=== PATIENT | female | born 1965 | race Caucasian/White ===

== ENCOUNTER 2020-01-27 14:28 | Outpatient (CLI) | payer MEDICARE, SELFPAY ==
[2020-01-27 14:44] LABS: Basophils Absolute Auto 0.06 K/mm3 (0.00-0.10); Basophils Percent Auto 0.6 % (0.0-1.0); Hematocrit 43.6 % (35.0-49.0); Hemoglobin 14.4 g/dL (12.0-15.0); Immature Granulocyte Absolute 0.04 K/mm3 (0.00-0.00); Immature Granulocyte Percent A 0.4 % (0.0-0.0); Lymphocytes Absolute Auto 3.17 K/mm3 (1.10-4.50); Lymphocytes Percent Auto 32.2 % (18.0-42.0); Mean Corpuscular Hemoglobin 28.3 pg (27.0-31.0); Mean Corpuscular Volume 85.7 fL (78.0-102.0); Mean Platelet Volume 9.9 fl (9.2-11.8); Monocytes Absolute Auto 0.75 K/mm3 (0.10-0.90); Monocytes Percent Auto 7.6 % (2.0-11.0); Neutrophils Absolute Auto 5.6 K/mm3 (1.7-7.2); Neutrophils Percent Auto 57.2 % (50.0-70.0); Platelet Count Result 255 K/mm3 (150-420); Red Blood Count 5.09 M/mm3 (4.20-5.40); Red Cell Distribution Width 14.6 % (11.6-14.4); White Blood Count 9.8 K/mm3 (4.8-10.8)
--- NOTE | 2020-01-27 14:55 | ECG_ITS ---
Measurements Intervals [place] Rate: 70 P: 59 UT: 156 QRS: 64 QRSD: 100 T: 36 QT: 413 QTc: 446 Interpretive Statements SINUS RHYTHM POSSIBLE LEFT ATRIAL ENLARGEMENT INCOMPLETE RIGHT BUNDLE BRANCH BLOCK BORDERLINE R WAVE PROGRESSION, ANTERIOR LEADS BORDERLINE ECG Electronically Signed On 01-27-2020 15:16:55 CDT by Sp Burris D.O.
[2020-01-27 15:08] LABS: Alanine Aminotransferase 27 U/L (14-59); Albumin Level 3.6 g/dL (3.4-5.0); Alkaline Phosphatase 112 U/L (46-116); Anion Gap 12.6 mmol/L (7-16); Aspartate Amino Transferase 19 U/L (15-37); Bilirubin,Total 0.2 mg/dL (0.00-1.00); Blood Urea Nitrogen 17 mg/dL (7-18); Calcium 9.1 mg/dL (8.5-10.1); Carbon Dioxide 29 mmol/L (21-32); Chloride 105 mmol/L (98-108); Estimated Glomerular Filt Rate 54; Free T3 2.42 pg/mL (2.18-3.98); Free T4 Free Thyroxine 1.15 ng/dL (0.76-1.46); Glucose 112 mg/dL (70-99); Magnesium 1.9 mg/dL (1.8-2.4); Osmolality Calculated 298 mOsm/kg (285-295); Potassium 3.6 mmol/L (3.5-5.1); Sodium 143 mmol/L (136-145); Thyroid Stimulating Hormone 0.35 uIU/mL (0.36-3.74); Total Protein 7.3 g/dL (6.4-8.2)
--- NOTE | 2020-02-12 09:04 | WPDHOLTEREM ---
Holter/Event Monitor Holter/Event Monitor Date of procedure: 01/27/20 Procedure Type: 30 day event monitor Indications: Palpitations Conclusion: 1. 12 days event monitor between 01/27/20-02/11/20. There are 18 available transmissions for analysis. 2. Underlying rhythm is sinus rhythm. HR range 51-120 bpm; average HR 76 bpm. 3. There are occasional premature supraventricular complexes with total burden <1%. No supraventricular tachycardia. 4. Unable to calcuate PVC's due to excessive artifact, but none were seen in transmissions. 5. No significant pauses greater than 2 seconds. 6. Patient reports 3 symptoms of symptoms other than listed which demonstrate sinus rhythm, HR range 75-92 bpm.
== END 2020-01-27 14:29 | disposition home or self-care (01) ==
PROVIDERS: PCP Internal Medicine; Visit Provider Internal Medicine
DX: R00.2 Palpitations (principal)
CPT/HCPCS: 36415; 80053; 83735; 84439; 84443; 84481; 85025; 93005; 93270

== ENCOUNTER 2020-01-30 11:36 | Outpatient (CLI) | payer MEDICARE, SELFPAY ==
--- NOTE | ~2020-01-30 | US_ITS ---
EXAMINATION: US thyroid DATE: 01/30/2020 13:17 INDICATION: Hypothyroidism. TECHNIQUE: Multiple ultrasound images of the thyroid were obtained. COMPARISON: None. FINDINGS: The right thyroid lobe measures 5.7 x 2.1 x 2.0 cm. The left thyroid lobe measures 4.4 x 1.3 x 1.4 c m. There are multiple nodules in the thyroid measuring less than 5 mm. In the right thyroid lobe, th ere is a 14 mm solid, hypoechoic, nkhdm-selb-dzdk nodule with smooth margin without echogenic foci (T I-RADS TR4). In in the left thyroid lobe, there is a 5 mm mixed cystic and solid, hypoechoic, wider-t montoya-tall nodule with smooth margin without echogenic foci (TR4). IMPRESSION: 1. Thyroid nodules. Thyroid ultrasound is recommended in one year. Reviewed, dictated and finalized at location E.
--- NOTE | 2020-01-30 11:42 | ECHO_ITS ---
Patient Info Name: Sally Ibarra Age: 54 years : 1965 Gender: Female Ht: 62 in Wt: 149 lbs BSA: 1.74 m2 HR: 63 bpm BP: 143 / 83 mmHg Heart Rhythm: Sinus Rhythm Technical Quality: Fair Exam Date: 01/30/2020 12:15 PM Exam Location: [facility] Patient Status: Outpatient Admit Date: 01/30/2020 Staff Ordering Physician: Leelee Ayala MD Mds Manager: Avril Kennedy RDCS Attending Provider: Leelee Ayala MD Referring Physician: Jamie ROY; Exam Type: CA echo doppler color flow Study Info Indications R00.2 - Palpitations R94.31 - Abnormal electrocardiogram ECG EKG Complete two-dimensional, color flow and Doppler transthoracic echocardiogram is performed. Strain analysis performed. History/Risk Factors Hypertension: No Dyslipidemia: No Congenital Heart Disease (CHD): No Peripheral Arterial Disease (PAD): No Myocardial Infarction (PR): No Chronic Lung Disease: No Obesity: No Renal Disease: No Coronary Artery Disease (CAD) No Congestive Heart Failure (CHF): No Cardiomyopathy/LV Systolic Dysfunction: No Diabetes Mellitus: No COPD: No Tobacco Use: Former Cerebrovascular Disease: No Deep Vein Thrombosis (DVT): None Dialysis: None Frailty Scale (CSHA): 1: Very Fit Cardiac Arrest: No Prior Interventions Pacemaker: No PCI: No CABG: No Valve Surgery: No ICD: No PV Intervention: None Heart Transplant: No Summary 1. Left ventricular chamber dimension is normal. 2. Left ventricular systolic function is normal, estimated at 60-65%. 3. The left ventricular diastolic function is normal. 4. E/e' 6 is not elevated. 5. Global longitudinal strain is normal at -18.0%. 6. There is trace tricuspid valve regurgitation. Left Ventricle E/e' 6 is not elevated. Global longitudinal strain is normal at -18.0%. Left ventricular chamber dimension is normal. Left ventricular systolic function is normal, estimated at 60-65%. The left ventricular diastolic function is normal. Right Ventricle Right ventricular chamber dimension is normal. Right ventricular systolic function is normal. Left Atria Left atrial chamber dimension is normal. Right Atria Right atrial chamber dimension is normal. Aortic Valve The aortic valve is trileaflet. There is no aortic valve stenosis. There is no aortic valve regurgitation. Pulmonic Valve There is no pulmonic regurgitation. Mitral Valve There is no mitral valve stenosis. There is no mitral valve regurgitation. Tricuspid Valve RVSP is not calculated due to an inadequate TR jet. There is trace tricuspid valve regurgitation. Pericardium/Pleural There is no pericardial effusion. Inferior Vena Cava Normal inferior vena cava with >50% collapse upon inspiration consistent with normal right atrial pressure, 5 mmHg. Aorta The aortic root size at the sinus of Valsalva is normal. Left Ventricular Outflow Tract Name Value Normal LVOT 2D LVOT Diameter 2.3 cm LVOT Doppler LVOT Peak Velocity
== END 2020-01-30 11:37 | disposition home or self-care (01) ==
LOC: CHSIMG 11:37
PROVIDERS: PCP Internal Medicine; Visit Provider Internal Medicine
DX: E05.90 Thyrotoxicosis, unspecified without thyrotoxic crisis or storm (principal); R00.2 Palpitations; R94.31 Abnormal electrocardiogram [ECG] [EKG]
CPT/HCPCS: 76536; 93306

== ENCOUNTER 2021-10-26 10:46 | Outpatient (CLI) | payer MEDICARE, SELFPAY ==
--- NOTE | ~2021-10-26 | MM_ITS ---
EXAMINATION: MM screening [facility] BI w nancy HISTORY: Screening TECHNIQUE: Craniocaudal and mediolateral oblique 3-D tomosynthesis images were obtained and synthetic 2-D images were generated. CAD analysis was submitted and interpreted. COMPARISON: Comparison to multiple prior studies sequentially, with oldest reviewed study dated 09/24. BREAST PARENCHYMAL COMPOSITION: There are scattered areas of fibroglandular density. FINDINGS: There is no evidence of suspicious mass, calcification, or architectural distortion to sugg est malignancy in either breast. There has been no suspicious interval change. IMPRESSION: 1. No mammographic evidence of malignancy. 2. Recommend routine screening mammography in one year. BI-RADS Category 1: Negative Reviewed, dictated and finalized at location A. 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
== END 2021-10-26 10:47 | disposition home or self-care (01) ==
PROVIDERS: PCP Internal Medicine; Visit Provider Obstetrics & Gynecology
DX: Z12.31 Encounter for screening mammogram for malignant neoplasm of breast (principal)
CPT/HCPCS: 77063; 77067

== ENCOUNTER 2022-12-21 11:50 | Outpatient (CLI) | payer MEDICARE, SELFPAY ==
--- NOTE | ~2022-12-21 | XR_ITS ---
EXAMINATION: XR chest 2V 12/21/2022 12:07 INDICATION: Covid infection. PROCEDURE: 2 view chest COMPARISON: Comparison to multiple prior studies sequentially, with oldest reviewed study dated 11/28. FINDINGS: The lungs are clear. The cardiomediastinal silhouette is within normal limits. There are no pleural effusions. There is no pneumothorax suspected. There are Kruger rods at the thoracol umbar junction. The lungs are hyperinflated which is consistent with, but not diagnostic of chronic o bstructive pulmonary disease. IMPRESSION: 1: NO ACUTE CARDIOPULMONARY DISEASE. Reviewed, dictated and finalized at location B.
== END 2022-12-21 11:51 | disposition home or self-care (01) ==
LOC: CHSIMG 11:52
PROVIDERS: PCP Internal Medicine; Visit Provider Internal Medicine
DX: R05.9 Cough, unspecified (principal); R06.2 Wheezing
CPT/HCPCS: 71046

== ENCOUNTER 2023-03-24 12:04 | Outpatient (CLI) | payer MEDICARE, SELFPAY ==
--- NOTE | ~2023-03-24 | XR_ITS ---
AP and lateral views of the left hip Clinical history: Pain Findings: No acute fracture or dislocation is seen. Osseous alignment is anatomic. Left hip joint is unremarkable. Lumbosacral spinal fixation hardware is partially imaged. Soft tissues are unremarkable . Impression: No acute fracture or dislocation. Lumbosacral spinal fixation hardware, partially imaged. Reviewed, dictated and finalized at location . Impression: No acute fracture or dislocation. Lumbosacral spinal fixation hardware, partially imaged.
--- NOTE | ~2023-03-24 | XR_ITS ---
Left wrist Technique: PA, oblique, lateral, and ulnar deviation views were obtained. Clinical History: Swelling Findings: No acute fracture or dislocation is seen. Osseous alignment is anatomic. Joint spaces are p reserved. Soft tissues are unremarkable. Impression: Unremarkable left wrist radiographs. Reviewed, dictated and finalized at location . Impression: Unremarkable left wrist radiographs.
--- NOTE | ~2023-03-24 | XR_ITS ---
Left elbow Technique: AP, oblique, and lateral views were obtained. Clinical History: Pain Findings: No acute fracture or dislocation is seen. There is probable persistent secondary ossificati on center at the medial epicondyle humerus. Osseous alignment is anatomic. Joint spaces are preserved . There is elevation of the anterior fat pad, suggestive of small joint effusion. Impression: Probable small joint effusion. This raises the possibility of occult radial head fracture. Probable persistent secondary ossification center at the medial epicondyle of the humerus. Reviewed, dictated and finalized at [facility]. Impression: Probable small joint effusion. This raises the possibility of occult radial hea d fracture. Probable persistent secondary ossification center at the medial epicondyle of t he humerus.
--- NOTE | ~2023-03-24 | CT_ITS ---
EXAMINATION: CT elbow LT wo con DATE: 03/24/2023 14:15 INDICATION: Left elbow fracture. TECHNIQUE: Computed tomography (CT) of the left elbow was performed without intravenous contrast. Aut omated exposure control and iterative reconstruction technique were employed. The dose-length product was 456.05 mGy-cm. COMPARISON: Left elbow radiographs 03/24/2023 FINDINGS: Bone alignment is normal. No fracture. There is heterotopic ossification distal to medial h umeral epicondyle. There is mild elbow joint osteoarthritis. There is a small elbow joint effusion wi th 2 mm loose body. IMPRESSION: 1. No fracture. 2. Small elbow joint effusion with small loose body. 3. Mild elbow joint osteoarthritis. Reviewed, dictated and finalized at location E.
== END 2023-03-24 12:05 | disposition home or self-care (01) ==
PROVIDERS: PCP Internal Medicine; Visit Provider Internal Medicine
DX: S59.902A Unspecified injury of left elbow, initial encounter (principal); S79.912A Unspecified injury of left hip, initial encounter; M25.422 Effusion, left elbow; M24.022 Loose body in left elbow; M19.022 Primary osteoarthritis, left elbow; Z98.1 Arthrodesis status
CPT/HCPCS: 73080; 73110; 73200; 73502

== ENCOUNTER 2023-04-04 09:19 | Outpatient (CLI) | payer MEDICARE, SELFPAY ==
--- NOTE | ~2023-04-04 | XR_ITS ---
Left elbow Technique: AP, oblique, and lateral views were obtained. Clinical History: Injury COMPARISON: 03/24/2023 Findings: Stable elevation of the anterior fat pad which suggests small joint effusion. No acute frac ture or dislocation seen. Osseous alignment is unchanged. Stable heterotopic ossification at the medi al epicondyle region of the humerus. Impression: No change from prior exam. No acute fracture evident. Stable heterotopic ossification at the medial epicondyle. Small joint effusion probably present. Reviewed, dictated and finalized at location . Impression: No change from prior exam. No acute fracture evident. Stable heterotopic ossification at the medial epicondyle. Small joint effusion probably present.
== END 2023-04-04 09:20 | disposition home or self-care (01) ==
LOC: CHSIMG 09:21
PROVIDERS: PCP Internal Medicine; Visit Provider Internal Medicine
DX: S59.902A Unspecified injury of left elbow, initial encounter (principal); M89.9 Disorder of bone, unspecified; M25.422 Effusion, left elbow
CPT/HCPCS: 73080

== ENCOUNTER 2023-04-05 10:19 | Outpatient (CLI) | payer MEDICARE, SELFPAY ==
--- NOTE | ~2023-04-05 | MM_ITS ---
EXAMINATION: MM screening [facility] BI w nancy HISTORY: Screening mammogram TECHNIQUE: Craniocaudal and mediolateral oblique 3-D tomosynthesis images were obtained and synthetic 2-D images were generated. CAD analysis was submitted and interpreted. COMPARISON: 10/26/2021, 07/20/2017 BREAST PARENCHYMAL COMPOSITION: There are scattered areas of fibroglandular density. FINDINGS: No suspicious mass, calcification, or architectural distortion are identified in either lisbeth ast to suggest malignancy. There has been no suspicious interval change. IMPRESSION: 1. No mammographic evidence of malignancy. 2. Recommend routine screening mammography in one year. BI-RADS Category 1: Negative Reviewed, dictated and finalized at location A.
== END 2023-04-05 10:20 | disposition home or self-care (01) ==
LOC: CHSIMG 10:19
PROVIDERS: PCP Internal Medicine; Visit Provider Internal Medicine
DX: Z12.31 Encounter for screening mammogram for malignant neoplasm of breast (principal)
CPT/HCPCS: 77063; 77067

== ENCOUNTER 2024-01-01 11:21 | Outpatient (CLI) | payer MEDICARE, SELFPAY ==
--- NOTE | ~2024-01-01 | XR_ITS ---
EXAMINATION: XR lumbar spine 2-3V DATE: 01/01/2024 11:53 INDICATION: Right-sided low back swelling. Fall. TECHNIQUE: 3 views of lumbar spine were obtained. COMPARISON: None. FINDINGS: There are changes of posterior fusion procedure from T11 to S1 and the bilateral iliac bone s with screws and rods. There are changes of anterior fusion procedure at L4-L5 and L5-S1 with interb braydon devices. The vertical rods are discontinuous at L3-L4, but there is bridging posterolateral bone graft at this level. There is 3 mm retrolisthesis of T12 on L1, L1 on L2, and L2 on L3. Vertebral bod y heights are normal. There is mildly decreased disc height at T12-L1 and moderately decreased disc h eight at L2-L3 and L3-L4. IMPRESSION: 1. Moderate lumbar spondylosis. 2. Posterior fusion procedure from T11 to S1 and the bilateral iliac bones. 3. Anterior fusion procedures at L4-L5 and L5-S1. Reviewed, dictated and finalized at location E.
[2024-01-01 11:44] LABS: Basophils Absolute Auto 0.07 K/mm3 (0.00-0.10); Basophils Percent Auto 0.7 % (0.0-1.0); Eosinophils Absolute Auto 0.14 K/mm3 (0.02-0.50); Eosinophils Percent Auto 1.3 % (1.0-6.0); Hematocrit 49.7 % (35.0-49.0); Hemoglobin 16.5 g/dL (12.0-15.0); Immature Granulocyte Absolute 0.07 K/mm3 (0.00-0.00); Immature Granulocyte Percent A 0.7 % (0.0-0.0); Lymphocytes Absolute Auto 3.19 K/mm3 (1.10-4.50); Lymphocytes Percent Auto 29.9 % (18.0-42.0); Mean Corpuscular HGB Conc 33.2 g/dL (32-36); Mean Corpuscular Hemoglobin 30.1 pg (27.0-31.0); Mean Corpuscular Volume 90.5 fL (78.0-102.0); Mean Platelet Volume 9.6 fl (9.2-11.8); Monocytes Percent Auto 7.5 % (2.0-11.0); Neutrophils Percent Auto 59.9 % (50.0-70.0); Platelet Count Result 241 K/mm3 (150-420); Red Blood Count 5.49 M/mm3 (4.20-5.40); Red Cell Distribution Width 14.5 % (11.6-14.4); White Blood Count 10.7 K/mm3 (4.8-10.8)
[2024-01-01 11:53] LABS: Appearance Urine Clear (Clear); Bilirubin Urine Negative (Negative); Blood Urine Negative (Negative); Color Urine Light Yellow (Yellow); Glucose Urine UA Negative (Negative); Ketones Urine Negative (Negative); Leukocyte Esterase Ur Negative LEU/UL (Negative); Nitrate Urine Negative (Negative); Protein Urine Negative (Negative); Specific Grav Ur <= 1.005 (1.010-1.020); Urobilinogen Urine 0.2 mg/dL (0.2-1.0)
[2024-01-01 12:00] LABS: Anion Gap 11 mmol/L (4-12); Blood Urea Nitrogen 12 mg/dL (7-18); Calcium 9.4 mg/dL (8.5-10.1); Carbon Dioxide 28 mmol/L (21-32); Chloride 102 mmol/L (98-108); Estimated Glomerular Filt Rate > 60; Glucose 99 mg/dL (70-99); Osmolality Calculated 291 mOsm/kg (285-295); Potassium 4.5 mmol/L (3.5-5.1); Sodium 141 mmol/L (136-145)
[2024-01-01 12:06] LABS: Add Urine Microscopic? NO
[2024-01-01 15:24] LABS: CRP < 0.5 mg/dL (0.0-0.9)
[2024-01-01 16:13] LABS: Erythrocyte Sedimentation Rate 3 mm/hr (0-20)
== END 2024-01-01 11:22 | disposition home or self-care (01) ==
LOC: CHSLAB 11:23
PROVIDERS: PCP Internal Medicine; Visit Provider Internal Medicine
DX: M54.50 Low back pain, unspecified (principal); R50.9 Fever, unspecified; R30.0 Dysuria
CPT/HCPCS: 36415; 72100; 80048; 81003; 85025; 85652; 86140

== ENCOUNTER 2024-01-03 12:48 | Outpatient (CLI) | payer MEDICARE, SELFPAY ==
--- NOTE | ~2024-01-03 | CT_ITS ---
EXAMINATION: CT lumbar spine wo con DATE: 01/03/2024 13:20 INDICATION: Chronic low back pain. TECHNIQUE: Computed tomography (CT) of the lumbar spine was performed without intravenous contrast. A utomated exposure control and iterative reconstruction technique were employed. The dose-length produ ct was 792.65 mGy-cm. COMPARISON: CT lumbar spine 01/07/2013 FINDINGS: There is 5 degrees levocurvature of lumbar spine. There is 3 mm retrolisthesis of L1 on L2, L2 on L3, and L3 on L4. There are changes of anterior fusion procedures at L4-L5 and L5-S1 with inte rbody devices. Osteopenia is noted. There are changes of posterior fusion procedure from T11 to S1 an d the bilateral iliac bones with screws. The left L3 screws broken. The vertical rods are broken at L 3-L4. There is mildly decreased disc height at T10-T11 and T11-T12, moderately decreased disc height at L1-L2, and severely decreased disc height at L2-L3 and L3-L4. The following disc levels are specif ically discussed: L1-L2: The disc is bulging. There is mild bilateral facet joint hypertrophy. There is moderate bilate ral neural foraminal stenosis. There is mild central canal stenosis. L2-L3: The disc is bulging. There is mild bilateral facet joint hypertrophy. There is moderate bilate ral neural foraminal stenosis. There is mild central canal stenosis. L3-L4: The disc is bulging. There is ankylosis of the facet joints with moderate bilateral hypertroph y. There is moderate bilateral neural foraminal stenosis. There is mild central canal stenosis. L4-L5: There is moderate bilateral facet joint hypertrophy. There is mild bilateral neural foraminal stenosis. There is no central canal stenosis. L5-S1: There is moderate bilateral facet joint hypertrophy. There is mild bilateral neural foraminal stenosis. There is no central canal stenosis. IMPRESSION: 1. Anterior fusion procedures at L3-L4 and L4-L5. 2. Posterior fusion procedure from T11 to S1 and the bilateral iliac bones with fracture of the left L3 screw and fracture of the vertical rods at L3-L4. 3. Moderate lumbar spondylosis. Reviewed, dictated and finalized at location E.
== END 2024-01-03 12:49 | disposition home or self-care (01) ==
LOC: CHSIMG 12:50
PROVIDERS: PCP Internal Medicine; Visit Provider Internal Medicine
DX: M54.50 Low back pain, unspecified (principal); Z98.1 Arthrodesis status; M43.06 Spondylolysis, lumbar region
CPT/HCPCS: 72131

== ENCOUNTER 2024-04-16 10:00 | Outpatient (RCR) | payer MEDICARE, SELFPAY ==
--- NOTE | 2024-04-16 11:51 | OPREHPOC ---
Outpatient Therapy Plan of Care This is a Multidisciplinary Plan of Care that may contain components documented by all disciplines (PT, OT, and ST.) PT Problem 1 PT Problem #1 Knowledge Deficit PT Goal 1 Goal The patient will be independent in a home exercise program. Target Visit 4 PT Problem 2 PT Problem #2 Pain PT Goal 1 Goal The patient will report no greater than 3/10 low back pain with house chores and walking for exercise. Target Visit 12 PT Problem 3 PT Problem #3 Impaired Functional Mobil PT Goal 1 Goal 1. The patient will demonstrate 30% or less self perceived disability per the Back Index. 2. The patient will ambulate 1,200 feet during the 6 minute walk test to improve community ambulation. Target Visit 12 PT Problem 4 PT Problem #4 Impaired Strength PT Goal 1 Goal The patient will demonstrate at least 4-/5 upper and lower abdominal and lumbar extension strength to support the spine for daily activities and walking for exercise. Target Visit 12
--- NOTE | 2024-04-16 11:51 | PTOPEVAL1 ---
Assessment and note entered by Aura Toney, PT Evaluation Information Assessment Status Evaluation ICD-10 Condition Codes (PT) M54.16 Onset 04/11/24 Subjective Information Montse Ibarra reports she has a history of 3 back surgeries with the last one being a fusion from T11-S1. She broke the rods after her last surgery shortly after surgery in 2019. She was able to rehabilitate and returned to walking for exercise. She had a fall in November 2023 and since then she has been having constant lower back pain and is unable to walk for exercise. She has had to start taking pain medication regularly again due to constant pain. She notes increased pain when she vacuums, mops, sweeps, or works in her flower beds. She notes increased pain riding in her 's truck as well. She is using heat and laying down to help for pain. She had a follow up with her surgeon and was recommended to have surgery to fix the rods and screws that broke loose. She did not want to have surgery and was referred to PT. Reported Pain Level Pain Score 5: Self Report Assessment PT Clinical Summary Sally Ibarra presents with low back pain. She has a history of 3 different lumbar fusion surgeries with the most recent one being completed in 2019 for a T11-S1 fusion. She had a fall in November 2023 and since then she has been having constant low back pain and is unable to walk for exercise due to the pain. She also has difficulty riding in her 's truck, performing yard work, and performing house chores. She objectively demonstrates decreased and painful lumbar AROM, decreased core strength, decreased bilateral quadriceps flexibility, tenderness in the lower lumbar spine, and decreased functional abilities. She will benefit from skilled PT to address these limitations and improve functional ability. Plan of Care Interventions Electrical Stimulation,Hot Pack/Cold Pack,Manual Therapy,Neuro Re-education,Patient/Caregiver Educati,Therapeutic Activities,Therapeutic Exercise PT Services Indicated Yes Treatment Frequency and 2 times a week for 12 visits Duration These treatments will address the objective and functional deficits as defined above. The patient will be advanced safely and appropriately in order for the patient to progress towards his/her prior level of function. Additional exercises will
--- NOTE | 2024-05-08 10:19 | PTOPDC ---
Assessment and note entered by Aura Toney, PT Evaluation Information Assessment Status Discharge - Pt Not Presen ICD-10 Condition Codes (PT) M54.16 Onset 04/11/24 Subjective Information Pt called on 05/07/24 and cancelled remaining appointments due to PT making her pain worse. Assessment PT Clinical Summary Montse Ibarra completed 6 skilled PT visits for lumbar radiculopathy. She called on 05/07/24 and asked to be discharged due to pain worsening. Pt will be discharged. Plan of Care PT Services Indicated No
== END 2024-05-03 11:15 | disposition home or self-care (01) ==
LOC: CHSPT 10:00
DX: M54.16 Radiculopathy, lumbar region (principal)
CPT/HCPCS: 97014; 97110; 97161; G0283

== ENCOUNTER 2025-02-21 12:20 | Outpatient (CLI) | payer MEDICARE, SELFPAY ==
--- NOTE | ~2025-02-21 | MM_ITS ---
EXAMINATION: MM screening donna BI w nancy HISTORY: Screening TECHNIQUE: Craniocaudal and mediolateral oblique 3-D tomosynthesis images were obtained and synthetic 2-D images were generated. CAD analysis was submitted and interpreted. COMPARISON: Comparison to multiple prior studies sequentially, with oldest reviewed study dated 05/2017. BREAST PARENCHYMAL COMPOSITION: Dense: The breasts are heterogeneously dense, which may obscure small masses FINDINGS: There is no evidence of suspicious mass, calcification, or architectural distortion to sugg est malignancy in either breast. There has been no suspicious interval change. IMPRESSION: 1. No mammographic evidence of malignancy. 2. Recommend routine screening mammography in one year. BI-RADS Category 1: Negative Reviewed, dictated and finalized at location B.
--- NOTE | ~2025-02-21 | DEXA_ITS ---
Bone Density Report Name: HARVINDER SANDOVAL Age: 59 Sex: Female Ethnicity: White Date of : 1965 Indication: postmenopausal; screening for osteoporosis; prior fracture; hysterectomy; Referring Provider: Leelee Ayala Study: Bone densitometry was performed. Exam Date: February 21, 2025 Accession number: [id number] Bone Density: Region BMD T-score Z-score Classification Femoral Neck (Left) 0.626 -2.0 -0.7 Osteopenia Total Hip (Left) 0.784 -1.3 -0.3 Osteopenia Femoral Neck (Right) 0.562 -2.6 -1.3 Osteoporosis Total Hip (Right) 0.736 -1.7 -0.7 Osteopenia Femoral Neck Mean 0.594 -2.3 -1.0 Osteopenia Total Hip Mean 0.760 -1.5 -0.5 Osteopenia World Health Organization criteria for BMD impression classify patients as: Normal (T-score at or above -1.0), Osteopenia (T-score between -1.0 and -2.5), or Osteoporosis (T-score at or below -2.5). 10-year Fracture Risk: FRAX not reported because: Some T-score for Spine Total or Hip Total or Femoral Neck at or below -2.5 Prior hip or vertebral fracture Clinical Information Provided by Patient: Have had a previous hip or vertebral fracture Has had a low trauma fracture Has used the following medications: Vitamin D Has the following medical conditions: Hysterectomy Patient maximum height was 62 Menopause Age: 39 No regular weight bearing exercise Drinks caffeinated beverages Onset of menses at age 11 Number of children 1 Impression: The patient has established osteoporosis, based on the Right Femoral Neck T-score and the existence of a prior fracture. The patient has risk factors, including: previous fracture. Discussion: HIGH RISK OF FRACTURE. BONE DENSITY IS UNDESIRABLY LOW AT ONE OR MORE SKELETAL SITES, CONSISTENT WITH POSTMENOPAUSAL OSTEOPOROSIS. This patient's lowest T-score, in a patient who has previously fractured, meets the World Health Organization's (WHO) criteria for severe osteoporosis. In untreated patients, the risk of osteoporotic fracture increases approximately two-fold for each 1.0 SD decrease in T-score. Low bone density is not the only risk factor for fracture; also consider factors such as patient's age, frailty or poor health, risk of falling, risk of injury, previous osteoporotic fracture, family history of osteoporosis, cigarette smoking, low body weight, etc. Not everyone with low bone mineral density has osteoporosis; osteomalacia and other metabolic bone disorders should also be considered. Patients who have osteoporosis should be evaluated for specific diseases and conditions (secondary causes) that may cause or contribute to bone loss. The [place] Association of Clinical Endocrinologists (AACE) and National Osteoporosis Foundation (NOF) recommend pharmacologic intervention for all postmenopausal women with a previous hip or vertebral fracture and a T-score in this range. The patient should follow a healthful lifestyle (good nutrition with adequate calcium and vitamin D, and appropriate weight-bearing exercise). Follow-Up: Consider a repeat BMD and Vertebral Fracture Assessment (VFA) exam in 2 years or sooner if medically necessary, to reassess this patient's status. Reported by: MÓNICA on 02/21/2025 2:46:00 PM. Reviewed, dictated and finalized at location A.
--- OUTSIDE RECORDS SUMMARY | 2025-02-21 12:22 | XMS_ITS | Continuity of Care Document ---
Author Organization Merged with [facility] Address [address] [place] [address] Phone Care Team Providers Care Administrator Of Home Health Name Role Phone Mason Espinosa MD Unavailable Unavailable Procedures Procedure Date Office/outpatient Visit, Est Office/outpatient Visit, [facility] Advance Directives Directive Yes / No Effective Date File Name No Information Encounters Encounter Description Practice Location Reason(s) For Visit Diagnoses Date Provider Providers Copied on Encounter Office/outpat ient Visit, [facility], [address] [place] [address] [address], [place], [place], [id number], tel:[phone] [facility] No Information 0 Francisca Cuevas. [address] [facility] [place], [id number], [place]. tel:[phone] Referring Provider: Zeny Helton [facility] [address] [place], [address]. tel:[phone] Office/outpat ient Visit, [facility], [address], [place], [place], [id number], tel:[phone] [facility] No Information 7 0 Francisca Cuevas. [address] [facility], [facility], [place], [place], [id number], [place]. tel:[phone] Referring Provider: Nemesio Orellana OD, [facility] [address] [place], [address]. tel:[phone] Family History Family Member Type Diagnosis Age At Onset No Information Payers Payer name Insurance type Covered democrat ID Authoriza tion(s) [place] [id number] Social History Type Description Quantity Date Captured Comments Sex Female Smoking Status No Information Chief Complaint And Reason For Visit No Information Reason For Referral Reason For Referral No Information History Of Present Illness Encounter Date Complaint History Of Prese nt Illness No Information Functional Status Date Functional Assessmen t No Information Instructions Date Instruction Additional Infor mation No Information Assessments Type Assessment Date No Information Patient Care Teams Name Effective Dates (start - stop) Status Members No Information
--- OUTSIDE RECORDS SUMMARY | 2025-02-21 12:22 | XMS_ITS | Continuity of Care Document ---
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 Role Phone Unavailable Unavailable Unavailable Advance Directives Directive Yes / No Effective Date File Name No Information Encounters Encounter Description Practice Location Reason(s) For Visit Diagnoses Date Provider Providers Copied on Encounter [facility], [address], [place], [place], [id number], tel:[phone] [facility] LUMBAR DISC DISPLACEMENT 8 No Information [facility], [address], [place], [place], [address], tel:[phone] [facility] OTH ADV EFF MED/BIO SUB 4 No Information Family History Family Member Type Diagnosis Age At Onset No Information Payers Payer name Insurance type Covered republican ID Authoriza tion(s) No Information Social History Type Description Quantity Date Captured [...]
--- OUTSIDE RECORDS SUMMARY | 2025-02-21 12:22 | XMS_ITS | Clinical Summary ---
Author Organization [facility] Address [address] [place] [address] Care Team Providers Care Solar System Designer Name Role Phone Leelee Ayala MD Primary Care Provider [phone] Allergies Active Allergy Reactions Criticality Noted Date Comments Apple Anaphylaxis,Swelling High 02/28/2019 Banana Anaphylaxis,Swelling High Lei Anaphylaxis,Swelling High 02/28/2019 Morphine Nausea & Vomiting Low 06/26/2019 Medications acetaminophen 500 mg capsuleIndicati ons:Pain Take 2 capsules (1,000 mg total) by mouth every 6 (six) hours Wean down. 60 tablet 07/05/2019 Active HYDROcodone-payton taminophen (NORCO) 10-325 mg per tablet 0 08/12/2020 Activ e meloxicam (MOBIC) 15 mg tablet 06/29/2021 Active Active Problems Problem Noted Date Diagnosed Date Other secondary scoliosis, lumbar region 019 Spinal stenosis, lumbar na on, with neurogenic claudication 04/18/2019 Lumbago 12/16/2015 Mass of breast 10/09/2012 Arthralgia of shoulder 06/14/2012 Resolved Problems Problem Noted Date Diagnosed Date Resolved Date Osteoporosis 02/20/2019 03/15/2019 Encounters Date Type Department Care Team Description 02/19/2025 Telephone [facility] Scheduling [address] [place] [address] Avril Rg from Last 3 Months Immunizations Immunization Administration Dates Next Due Influenza, Quadrivalent, Spl it, Preservative Free, Intramuscular 07/02/2019 Surgical History Surgery Date Site/Laterality Comments SPINAL FUSION fusion at L5-S1 in 2003 and subsequently at L4-L5 in 2008 HERNIA REPAIR COLONOSCOPY SECTION ULNAR NERVE TRANSPOSITION Left SALPINGOOPHORECTOMY HYSTERECTOMY 09/11/2001 - 09/10/2002 with removal of tubes and remaining ovary Medical History Medical History Date Comments Osteoarthritis Scoliosis Hypertension Osteopenia 03/12/2019 Family History Medical History Relation Name Comments Hypertension Father Stroke Father Relation Name Status Comments Father Social History Tobacco Use Types Packs/Day Years Used Date Smoking Tobacco: Former Cigarettes 1 30 1 8 2017 Smokeless Tobacco: Never Alcohol Use Standard Drinks/Week Comments Yes 0 (1 standard drink = 0.6 oz pur e alcohol) social one every 2 weeks Comments No Sex and Gender Information Value Date Recorded Sex Assigned at Not on file Legal Sex Female 12:01 PM JAILER Gender Identity Female 07/07/2021 9:17 AM CDT Sexual Orientation Straight 07/07/2021 9: 17 AM CDT Occupation Industry Job Start Date Job End Date disabled Not on file Not on file Not on file Obstetrics History Last Filed Vital Signs Vital Sign Reading Time Taken Comments Blood Pressure 101/50 07/05/2019 11:42 AM CDT Pulse 80 07/05/2019 11:42 AM CDT Temperature 37 C (98.6 F) 07/05/2019 11:42 AM CDT Respiratory Rate 18 07/05/2019 11:42 AM CDT Oxygen Saturation 97% 07/05/2019 11:42 AM CDT Inhaled Oxygen Concentration - - Weight 61.7 kg (136 lb) 01/10/2024 8:33 AM CDT Height 157.5 cm (5' 2) 01/10/2024 8:33 AM CDT Body Mass Index 24.87 01/10/2024 8:33 AM CDT Plan of Treatment Health Maintenance Due Date Last Done Comments Colon Cancer Screening-Colonoscopy 1964 Depression Screening 1964 Hepatitis C Screening 1964 DTaP/Tdap/Td Vaccine (1 - Tdap) 1975 Hepatitis B Screening 1982 Regular Well Visit/Exam 18-64 1982 Lung Cancer Screening 2014 Zoster Vaccine (1 of 2) 2014 Breast Cancer Screening-Mammogram 01/21/2017 01/22/2016, 10/12/2012 Influenza Vaccine (Season Ended) 2025 06/05/2020, 07/02/2019, 06/22/2018, Additional history exists Pneumococcal vaccine <65 Aged Out 06/15/2015 No longer eligible based on patient's age to complete this topic Medical Devices Implanted Type Area History Professor Device Identifier Shelf Expiration Date Model / Serial / Lot L4-5 Fusion- 4 Implanted:2003 (Quantity not on file) Lumbar-Sa cral Spine [employer] [id number] - [id number] - [id number] Implanted:Qty: 1 on 07/01/2019 by Danish Hammonds MD at [facility] N/A: Spine Lumbar [employer] Inc 06/03/2024 [id number] / [id number] / Medtronic Sofamor Danek [id number] Cd Horizon 5.5mm 500mm Line Straight Gumaro Spinal Titanium - [id number] Implanted:Qty: 1 on 07/01/2019 by Danish Hammonds MD at [facility] N/A: Spine Lumbar Medtronic Inc 07/01/2019 [id number] / / Medtronic Sofamor Danek [id number] Solera Cd Horizon 6.5mm 45mm Multiaxial Spine Screw Bone Cocr - [id number] Implanted:Qty: 12 on 07/01/2019 by Danish Hammonds MD at [facility] N/A: Spine Lumbar Medtronic Inc 07/01/2019 [id number] / / Medtronic Sofamor Danek [id number] Solera Cd Horizon 6.5mm 50mm Multiaxial Spine Screw Bone Cocr - [id number] Implanted:Qty: 4 on 07/01/2019 by Danish Hammonds MD at [facility] N/A: Spine Lumbar Medtronic Inc 07/01/2019 [id number] / / Medtronic Inc [id number] 8.5mm 90mm Multiaxial Cannulated Thoracolumbar Screw Bone - [id number] Implanted:Qty: 1 on 07/01/2019 by Danish Hammonds MD at [facility] N/A: Spine Lumbar Medtronic Inc 07/01/2019 [id number] / / Medtronic Sofamor Danek [id number] Cd Horizon Break Off Spinal Screw Set Titanium Nonsterile 5.5 Mm - [id number] Implanted:Qty: 18 on 07/01/2019 by Danish Hammonds MD at [facility] N/A: Spine Lumbar Medtronic Inc 07/01/2019 [id number] / / Medtronic Inc [id number] 8.5mm 80mm Multiaxial Cannulated Thoracolumbar Screw Bone - [id number] Implanted:Qty: 1 on 07/01/2019 by Danish Hammonds MD at [facility] N/A: Spine Lumbar Medtronic Inc 07/01/2019 [id number] / / Medtronic Sofamor Danek [id number] Infuse 18mm 26mm Absorbable Sponge Sterile Water Syringe Needle - [id number] Implanted:Qty: 1 on 07/01/2019 by Danish Hammonds MD at [facility] N/A: Spine Lumbar Medtronic Inc 2020 [id number] / / [id number] Medtronic Sofamor Danek [id number] Infuse 18mm 26mm Absorbable Sponge Sterile Water Syringe Needle - [id number] Implanted:Qty: 1 on 07/01/2019 by Danish Hammonds MD at [facility] N/A: Spine Lumbar Medtronic Inc 04/10/2020 [id number] / / [id number] Medtronic Sofamor Danek [id number] Mastergraft Block Void Filler Substitute 20ml Bone Graft Matrix - [id number] Implanted:Qty: 1 on 07/01/2019 by Danish Hammonds MD at [facility] N/A: Spine Lumbar Medtronic Inc 10/11/2020 [id number] / / [id number] Procedures Procedure Name Priority Date/Time Associated Diagnosis Comments SCREENING MAMMOGRAM W RUIZ Routine 01/22/2016 8:50 AM CDT from Last 3 Months or Most Recently Relevant to Health Maintenance Results * Screening Mammogram W Ruiz (01/22/2016 8:50 AM CDT) Anatomical Region Laterality Modality Breast N/A Mammography 01/22/2016 8:50 AM CDT Narrative 01/25/2016 10:39 AM CDT MAIK CHANDRA M.D. FINAL REPORT ACC# Date Time Exam [id number] January 22, 2016 08:50:00 [facility] [id number] Bilateral screen w ruiz Technologist(s): Zoey Magana; ; EXAMINATION: Mammogram Technique: Bilateral Full-Field Digital Screening Mammogram and Digital Breast Tomosynthesis were performed. Views obtained: bilateral craniocaudal and bilateral mediolateral oblique. Computer Aided Detection of the 2D images was performed with PhoneFusion 1.3 version 9.3. Mammogram Findings: The present examination has been compared to a prior imaging study performed at [facility] on 10/12/2012. The breasts are heterogeneously dense, which may obscure small masses. There is no suspicious abnormality in either breast. IMPRESSION: Annual screening mammography is recommended. OVERALL FINAL ASSESSMENT: BI-RADS CATEGORY 1: Negative. Requested By: Dictated By: MAIK CHANDRA M.D. on Jan 25 2016 10:38A This document has been electronically signed by: MAIK CHANDRA M.D. on Jan 25 2016 10:38A [id number] Procedure Note Provider, MD Newton - 01/04/2017 MAIK CHANDRA M.D. FINAL REPORT ACC# Date Time Exam [id number] January 22, 2016 08:50:00 [facility] [id number] Bilateral screen w ruiz Technologist(s): Zoey Magana; ; EXAMINATION: Mammogram Technique: Bilateral Full-Field Digital Screening Mammogram and Digital Breast Tomosynthesis were performed. Views obtained: bilateral craniocaudaland bilateral mediolateral oblique. Computer Aided Detection of the 2Dimages was performed with PhoneFusion 1.3 version 9.3. Mammogram Findings: The present examination has been compared to a prior imaging study performed at [facility] on 10/12/2012. The breasts are heterogeneously dense, which may obscure small masses. There is no suspicious abnormality in either breast. IMPRESSION: Annual screening mammography is recommended. OVERALL FINAL ASSESSMENT: BI-RADS CATEGORY 1: Negative. Requested By: Dictated By: MAIK CHANDRA M.D. on Jan 25 2016 10:38A This document has been electronically signed by: MAIK CHANDRA M.D. on Jan 25 2016 10:38A [id number] us Historical Provider MD [facility] MAMMO PROCEDURES Yoon l Result from Last 3 Months or Most Recently Relevant to Health Maintenance Insurance [facility] MEDICARE ADVANTAGE MEDICARE COMMERCIAL GENERIC [facility] MDCR HMO REF [facility] MEDICARE ADVANTAGE Advance Directives For more information, please contact: [phone] * Full Code (Latest Code Status on File) Date Activated Date Inactivated Comments 07/01/2019 4:53 PM 07/05/2019 6:15 PM Care Teams Solar System Designer Relationship Specialty Start Date End Date Leelee Ayala MD [address] [place] [address] PCP - General Internal Medicine 07/07/21
--- OUTSIDE RECORDS SUMMARY | 2025-02-21 12:22 | XMS_ITS | Clinical Summary ---
Author Organization [facility] Address [address] [place] [address] Care Team Providers Care Final Inspector Balance Wheel Name Role Phone Unavailable Primary Care Provider Unavailabl e Source Comments [facility],non-owned Affiliates and Associated Physician Practices is amultiple site organization consisting of ambulatory clinics and hospital sitesin [place], [place], [place] and [place]. This disclosure is being madepursuant to the Care Everywhere program and may not contain all information available regarding this patient. Last updated 18.[facility] Allergies No known active allergies Social History Tobacco Use Types Packs/Day Years Used Date Smoking Tobacco: Never Assessed Comments Unknown Sex and Gender Information Value Date Recorded Sex Assigned at Not on file Legal Sex Female 9:03 PM THREAD DRESSER Gender Identity Not on file Sexual Orientation Not on file Plan of Treatment Health Maintenance Due Date Last Done Comments COLOGUARD (AGES 45-75) - COL ON CA SCREENING 1964 COLON MONITORING 1964 COLONOSCOPY - COLON CA SCREENING 1964 CT COLONOGRAPHY - COLON CA SCREENING 1964 Colorectal Cancer Screening 1964 FIT - COLON CA SCREENING 1964 FLEX SIG - COLON CA SCREENING 1964 LIPID TESTING 1964 MAMMOGRAM 1964 HIV SCREENING 1979 HEPATITIS C SCREENING 05/07/1982 DTAP/TDAP/TD VACCINES (1 - Tdap) 1983 PNEUMOCOCCAL VACCINE 50+ (1 of 1 - PCV) 2014 ZOSTER VACCINE (1 of 2) 2014 COVID-19 VACCINE (1 - 2023-2 5 season) 2024 DEPRESSION SCREENING 09/11/2024 INFLUENZA VACCINE (Season Ended) 2025 Respiratory Syncytial Virus (RSV) Vaccine Pt: or over 60 yrs (1 - 1-dose 75+ series) 2039 HEPATITIS B VACCINE Aged Out No longe r eligible based on patient's age to complete this topic HIB VACCINE Aged Out No longer eligi ble based on patient's age to complete this topic HPV VACCINE Aged Out No longer eligi ble based on patient's age to complete this topic MENINGOCOCCAL (Group B) VACC INE SHARED DECISION-MAKING Aged Out No longer eligibl e based on patient's age to complete this topic MENINGOCOCCAL GROUPS A/C/Y/W VACCINE Aged Out No longer eligible b ased on patient's age to complete this topic
--- OUTSIDE RECORDS SUMMARY | 2025-02-21 12:22 | XMS_ITS | Referral Summary ---
Author Organization [facility] Address [address] [place] [address] Care Team Providers Care Electronic Sensing Equipment Assembler Name Role Phone Leelee Ayala MD Primary Care Provider [phone] Encounters Date Type Department Care Team Description 02/19/2025 Telephone [facility] Scheduling [address] [place] [address] Avril Rg from Last 3 Months Allergies Active Allergy Reactions Criticality Noted Date [...] Diagnosed Date Resolved Date Osteoporosis 02/20/2019 03/15/2019 Immunizations Immunization Administration Dates Next Due Influenza, Quadrivalent, Spl it, Preservative Free, Intramuscular 07/02/2019 Social History Tobacco Use Types Packs/Day Years Used Date Smoking Tobacco: Former Cigarettes 10 10 1 2017 Smokeless Tobacco: Never Alcohol Use Standard Drinks/Week Comments Yes 0 (1 standard drink = 0.6 oz pur e alcohol) social one every 2 weeks Comments No Sex and Gender Information Value Date Recorded Sex Assigned at Not on file Legal Sex Female 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 Gender Identity Female 07/07/2021 9:17 AM CDT Sexual Orientation Straight 07/07/2021 9: 17 AM CDT Occupation Industry Job Start Date Job End Date disabled Not on file Not on file Not on file Last Filed Vital Signs Vital Sign Reading [...] 01/10/2024 8:33 AM CDT Plan of Treatment Not on file Medical Devices Implanted Type Area Drainage Inspector Device Identifier Shelf Expiration Date Model / Serial / Lot L4-5 Fusion- 4 Implanted:2003 (Quantity not on file) Lumbar-Sa cral Spine Acuity [employer] Inc [id number] - [id number] - [id number] Implanted:Qty: 1 on 07/01/2019 by Danish Hammonds MD at [facility] N/A: Spine Lumbar [employer] Inc 06/03/2024 [id number] / [id number] / Medtronic Sofamor Danek [id number] Cd Horizon 5.5mm 500mm Line Straight Gumaro Spinal Titanium - [id number] Implanted:Qty: 1 on 07/01/2019 by Danish Hammonds MD at [facility] N/A: Spine Lumbar Medtronic Inc 07/01/2019 [id number] / / Medtronic Sofamor Danek [id number] Solera Cd Horizon 6.5mm 45mm Multiaxial Spine Screw Bone Cocr - [id number] Implanted:Qty: 12 on 07/01/2019 by Danish Hammonds MD at [facility] N/A: Spine Lumbar Medtronic Inc 07/01/2019 [id number] / / Medtronic Sofamor Danek [id number] Solera Cd Horizon 6.5mm 50mm Multiaxial Spine Screw Bone Cocr - [id number] Implanted:Qty: 4 on 07/01/2019 by Danish Hammonds MD at [facility] N/A: Spine Lumbar Medtronic Inc 07/01/2019 [id number] / / Medtronic Inc [id number] 8.5mm 90mm Multiaxial Cannulated Thoracolumbar Screw Bone - [id number] Implanted:Qty: 1 on 07/01/2019 by Danish Hammonds MD at [facility] N/A: Spine Lumbar Medtronic Inc 07/01/2019 [id number] / / Medtronic Sofamor Danek [id number] Cd Horizon Break Off Spinal Screw Set Titanium Nonsterile 5.5 Mm - [id number] Implanted:Qty: 18 on 07/01/2019 by Danish Hammonds MD at [facility] N/A: Spine Lumbar Medtronic Inc 07/01/2019 [id number] / / Medtronic Inc [id number] 8.5mm 80mm Multiaxial Cannulated Thoracolumbar Screw Bone - [id number] Implanted:Qty: 1 on 07/01/2019 by Danish Hammonds MD at [facility] N/A: Spine Lumbar Medtronic Inc 07/01/2019 [id number] / / Medtronic Sofamor Danek [id number] Infuse 18mm 26mm Absorbable Sponge Sterile Water Syringe Needle - [id number] Implanted:Qty: 1 on 07/01/2019 by Danish Hammonds MD at [facility] N/A: Spine Lumbar Medtronic Inc 2020 [id number] / / [id number] Medtronic Sofamor Danek [id number] Infuse 18mm 26mm Absorbable Sponge Sterile Water Syringe Needle - [id number] Implanted:Qty: 1 on 07/01/2019 by Danish Hammonds MD at [facility] N/A: Spine Lumbar Medtronic Inc 04/10/2020 [id number] / / [id number] Medtronic Sofamor Danek [id number] Mastergraft Block Void Filler Substitute 20ml Bone Graft Matrix - [id number] Implanted:Qty: 1 on 07/01/2019 by Danish Hammonds MD at [facility] N/A: Spine Lumbar Medtronic Inc 10/11/2020 [id number] / / [id number] Procedures Procedure Name Priority Date/Time Associated Diagnosis Comments SCREENING MAMMOGRAM W RUIZ Routine 01/22/2016 8:50 AM CDT from Last 3 Months or Most Recently Relevant to Health Maintenance Results * Screening Mammogram W Ruiz (01/22/2016 8:50 AM CDT) Anatomical Region Laterality Modality Breast N/A Mammography 01/22/2016 8:50 AM CDT Narrative 01/25/2016 10:39 AM CDT MAIK CHANDRA M.D. FINAL REPORT ACC# Date Time Exam [id number] January 22, 2016 08:50:00 [facility] [id number] Bilateral screen w ruiz Technologist(s): Zoey Magana; ; EXAMINATION: Mammogram Technique: Bilateral Full-Field Digital Screening Mammogram and Digital Breast Tomosynthesis were performed. Views obtained: bilateral craniocaudal and bilateral mediolateral oblique. Computer Aided Detection of the 2D images was performed with Medicago.3 version 9.3. Mammogram Findings: The present examination has been compared to a prior imaging study performed at [facility] on 10/12/2012. The breasts are heterogeneously dense, which may obscure small masses. There is no suspicious abnormality in either breast. IMPRESSION: Annual screening mammography is recommended. OVERALL FINAL ASSESSMENT: BI-RADS CATEGORY 1: Negative. Requested By: Dictated By: MAIK CHANDRA M.D. on Jan 25 2016 10:38A This document has been electronically signed by: MAIK CHANDRA M.D. on Jan 25 2016 10:38A [id number] Procedure Note Provider, MD Newton - 01/04/2017 MAIK CAHNDRA M.D. FINAL REPORT ACC# Date Time Exam [id number] January 22, 2016 08:50:00 [facility] [id number] Bilateral screen w ruiz Technologist(s): Zoey Magana; ; EXAMINATION: Mammogram Technique: Bilateral Full-Field Digital Screening Mammogram and Digital Breast Tomosynthesis were performed. Views obtained: bilateral craniocaudaland bilateral mediolateral oblique. Computer Aided Detection of the 2Dimages was performed with Medicago.3 version 9.3. Mammogram Findings: The present examination has been compared to a prior imaging study performed at [facility] on 10/12/2012. The breasts are heterogeneously dense, which may obscure small masses. There is no suspicious abnormality in either breast. IMPRESSION: Annual screening mammography is recommended. OVERALL FINAL ASSESSMENT: BI-RADS CATEGORY 1: Negative. Requested By: Dictated By: MAIK CHANDRA M.D. on Jan 25 2016 10:38A This document has been electronically signed by: MAIK CHANDRA M.D. on Jan 25 2016 10:38A [id number] Historical Provider IMGael MAMMO PROCEDURES Yoon l Result from Last 3 Months or Most Recently Relevant to Health Maintenance Insurance [facility] MEDICARE ADVANTAGE [facility]IC[facility] Address: [facility] [address] [place] [address] MEDICARE COMMERCIAL GENERIC [place] [id number] [facility] MDCR HMO REF [facility]IC[facility] Address: [facility] [address] [place] [address] [facility] MEDICARE ADVANTAGE [facility] Address: [address] [address] [place] [address] Advance Directives For more information, please contact: [phone] * Full Code (Latest Code Status on File) Date Activated Date Inactivated Comments 07/01/2019 4:53 PM 07/05/2019 6:15 PM Care Teams Electronic Sensing Equipment Assembler Relationship Specialty Start Date End Date Leelee Ayala MD [address] [place] [id number] PCP - General Internal Medicine 07/07/21
--- OUTSIDE RECORDS SUMMARY | 2025-02-21 12:23 | XMS_ITS | Continuity of Care Document ---
Author Organization [facility] Address [address] [place] [address] Phone Care Team Providers Care Bleacher Lard Name Role Phone Jayy Escamilla MD Unavailable Unavailable Allergies, Adverse Reactions, Alerts Substance Reaction Status Criticality No Known allergies Medications Medication Instructions Dosage Effective Dates (start - stop) Status Comments FOSAMAX (unknown strength) Not Available - Active GLUCOSAMINE SULFATE (unknown strength) Not Available - Active MULTIVITAMINS (unknown strength) Not Available - Active ALEVE (unknown strength) Not Available - Active SIMVASTATIN (unknown strength) Not Available - Active FLEXERIL (unknown strength) Not Available - Active TORADOL (unknown strength) Not Available - Active VICODIN (unknown strength) Not Available - Active VITAMIN D2 (unknown strength) Not Available - Active CALCIO NEGRITA (unknown strength) Not Available - Active LISINOPRIL (unknown strength) Not Available - Active Advance Directives Directive Yes / No Effective Date File Name No Information Encounters Encounter Description Practice Location Reason(s) For Visit Diagnoses Date Provider Providers Copied on Encounter [facility], [address], [facility], [place] tel:[phone] [facility] Lumbar radiculopathy (chief complaint) Degeneration of lumbar or lumbosacral intervertebra l discRadiculit is, Thoracic or Lumbar 2 [facility]. [address] , [place], [place], [id number] . tel: [phone] [facility], [address] [place] [address], [address], [place] tel:[phone] [facility] Radiculitis, Thoracic or Lumbar Feb- 1- 2 [facility]. [address], [place], [place], [id number] . tel: [phone] Family History Family Member Type Diagnosis Age At Onset No Information Payers Payer name Insurance type Covered constitution party ID Authoriza tion(s) No Information Social History Type Description Quantity Date Captured Comments Sex Female Smoking Status No Information Chief Complaint And Reason For Visit From encounter dated 02/23/2012 13:50'. Lumbar radiculopathy (chief complaint) Reason For Referral Reason For Referral No [...]
== END 2025-02-21 12:21 | disposition home or self-care (01) ==
PROVIDERS: PCP Internal Medicine; Visit Provider Internal Medicine
DX: Z12.31 Encounter for screening mammogram for malignant neoplasm of breast (principal); Z78.0 Asymptomatic menopausal state; M85.89 Other specified disorders of bone density and structure, multiple sites; M81.0 Age-related osteoporosis without current pathological fracture
CPT/HCPCS: 77063; 77067; 77080

== ENCOUNTER 2025-03-17 07:24 | Outpatient (CLI) | payer MEDICARE, SELFPAY ==
--- NOTE | ~2025-03-17 | US_ITS ---
Exam: US aorta - 03/17/2025 7:32 CDT History: 59 years old Female with AAA SCREENING Technique: Sonography of the abdominal aorta and proximal common iliac arteries was performed. Color Doppler was used. Comparison: None available. Findings: No aortic aneurysms seen. Atherosclerotic calcifications are seen. The right common iliac artery measures 1.2 cm. The left common iliac artery measures 1.2 cm. IMPRESSION: No aortic aneurysms seen. Reviewed, dictated and finalized at location A. IMPRESSION: No aortic aneurysms seen.
--- NOTE | ~2025-03-17 | CT_ITS ---
CT Scan of the Chest without Contrast: Clinical Indication: Lung cancer screening, nicotine dependence Technique: Contiguous sections were acquired throughout the chest without intravenous contrast. Dose reduction technique was used on this scan by utilizing automated exposure control and iterative recon struction technique. The dose-length product (DLP) was 60.35 mGy-cm. Findings: There is no evidence of any significant mediastinal, hilar or axillary lymphadenopathy. Coronary yonatan ry calcifications are present. There is no evidence of pleural or pericardial effusion. The lungs are clear. No pulmonary nodules or infiltrates are noted. Images through the upper abdomen reveal no abnormalities. Impression: Lung RADS 1: Negative. 12 month follow-up screening CT advised. Reviewed, dictated and finalized at location . Impression: Lung RADS 1: Negative. 12 month follow-up screening CT advised.
--- NOTE | ~2025-03-17 | US_ITS ---
EXAMINATION: US carotid duplex BI DATE: 03/17/2025 10:25 CDT INDICATION: Audible bruit TECHNIQUE: Grayscale, color Doppler, and pulsed Doppler images of the cervical carotid arteries were obtained. The degree of vessel stenosis is placed in one of the following categories: normal, <50%, 50-69%, >=7 0% but less than near-occlusion, near-occlusion, or total occlusion. Note that percent stenosis relative to normal distal artery lumen diameter is indirectly measured fro m velocity measurements as described originally by Yahir, et al. Radiology 2003; [id number]:[id number] and upda blaine by wood Hughes al STROKE 2012;43(3);915-921. COMPARISON: None. FINDINGS: There is mild atherosclerosis of both carotid arteries. High bifurcation detected bilaterally. Peak systolic velocity (in cm/s) is detailed below RIGHT: Right common carotid artery (CCA): 94 cm/s. Right internal carotid artery (ICA) PSV: 77 cm/s. Right ICA end-diastolic velocity (EDV): 26 cm/s. Right ICA/CCA PSV ratio is 0.8. Right external carotid artery (ECA): 65cm/s. There is antegrade flow in the right vertebral artery LEFT: Left common carotid artery (CCA): 84 cm/s. Left internal carotid artery (ICA) PSV: 94 cm/s. Left ICA end-diastolic velocity (EDV): 33 cm/s. Left ICA/CCA PSV ratio is 1.1. Left external carotid artery (ECA): 46cm/s. There is antegrade flow in the left vertebral artery. IMPRESSION: 1. Less than 50% stenosis in the right internal carotid artery. 2. Less than 50% stenosis in the left internal carotid artery. Reviewed, dictated and finalized at location A.
--- OUTSIDE RECORDS SUMMARY | 2025-03-17 07:28 | XMS_ITS | Clinical Summary ---
Author Organization [facility] Address [address] [place] [address] Care Team Providers Care Movement Therapist Name Role Phone Unavailable Primary Care Provider Unavailabl e Source Comments [facility],non-owned Affiliates and Associated Physician Practices is amultiple site organization consisting of ambulatory clinics and hospital sitesin [place], [place], [place] and [place]. This disclosure is being madepursuant to the Care Everywhere program and may not contain all information available regarding this patient. 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
--- OUTSIDE RECORDS SUMMARY | 2025-03-17 07:28 | XMS_ITS | Referral Summary ---
Author Organization [facility] Address [address] [place] [address] Care Team Providers Care Watch Adjuster Name Role Phone Leelee Ayala MD Primary Care Provider Encounters Date Type Department Care Team Description 02/27/2025 10:31 AM CDT - 02/27/2025 11:59 PM CDT Hospital Encounter [facility] [address] [place] [address] [address] [place] [id number] Spinal stenosis, lumbar region, with neurogenic claudication Discharge Disposition: Discharge to home or self care 02/27/2025 10:30 AM CDT Office Visit [facility] Neurosurgery [address] [place] [address] Adebayo Jenkins PA Spinal stenosis, lumbar region, with neurogenic claudication (Primary Dx) 02/21/2025 Orders Only [facility] Neurosurgery [address] [place] [address] Medical Office Building [address] [place] [address] Adebayo Jenkins PA Lumbar pain (Primary Dx) 02/19/2025 Telephone [facility] Scheduling [address] [place] [address] Avril Rg from Last 3 [...] Years Used Date Smoking Tobacco: Former Cigarettes 2017 Smokeless Tobacco: Never Tobacco Cessation:Counseling Given: No Alcohol Use Standard Drinks/Week Comments Yes 0 (1 standard drink = 0.6 oz pur e alcohol) social one every 2 weeks Comments No Sex and Gender Information Value Date Recorded Sex Assigned at Not on file 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 N/A: Spine Lumbar [employer] Inc 06/03/2024 [id number] / [id number] / Medtronic Sofamor Danek [id number] Cd Horizon 5.5mm 500mm Line Straight Gumaro Spinal Titanium - [id number] Implanted:Qty: 1 on 07/01/2019 by Danish Hammonds MD at [facility] N/A: Spine Lumbar Medtronic Inc 07/01/2019 [id number] / / Medtronic Sofamor Danek [id number] Solera Cd Horizon 6.5mm 45mm Multiaxial Spine Screw Bone Cocr - [id number] Implanted:Qty: 12 on 07/01/2019 by Danish Hammonds MD at [facility] N/A: Spine Lumbar Medtronic Inc 07/01/2019 [id number] / / Medtronic Sofamor Danek [id number] Solera Cd Horizon 6.5mm 50mm Multiaxial Spine Screw Bone Cocr - [id number] Implanted:Qty: 4 on 07/01/2019 by Danish Hammonds MD at [facility] N/A: Spine Lumbar Medtronic Inc 07/01/2019 [id number] / / Medtronic Inc [id number] 8.5mm 90mm Multiaxial Cannulated Thoracolumbar Screw Bone - [id number] Implanted:Qty: 1 on 07/01/2019 by Danish Hammonds MD at [facility] N/A: Spine Lumbar Medtronic Inc 07/01/2019 [id number] / / Medtronic Sofamor Danek [id number] Cd Horizon Break Off Spinal Screw Set Titanium Nonsterile 5.5 Mm - [id number] Implanted:Qty: 18 on 07/01/2019 by Danish Hammonds MD at [facility] N/A: Spine Lumbar Medtronic Inc 07/01/2019 [id number] / / Medtronic Inc [id number] 8.5mm 80mm Multiaxial Cannulated Thoracolumbar Screw Bone - [id number] Implanted:Qty: 1 on 07/01/2019 by Danish Hammonds MD at [facility] N/A: Spine Lumbar Medtronic Inc 07/01/2019 [id number] / / Medtronic Sofamor Danek [id number] Infuse 18mm 26mm Absorbable Sponge Sterile Water Syringe Needle - [id number] Implanted:Qty: 1 on 07/01/2019 by Danish Hammonds MD at [facility] N/A: Spine Lumbar Medtronic Inc 2020 [id number] / / [id number] Medtronic Sofamor Danek [id number] Infuse 18mm 26mm Absorbable Sponge Sterile Water Syringe Needle - [id number] Implanted:Qty: 1 on 07/01/2019 by Danish Hammonds MD at [facility] N/A: Spine Lumbar Medtronic Inc 04/10/2020 [id number] / / [id number] Medtronic Sofamor Danek [id number] Mastergraft Block Void Filler Substitute 20ml Bone Graft Matrix - [id number] Implanted:Qty: 1 on 07/01/2019 by Danish Hammonds MD at [facility] N/A: Spine Lumbar Medtronic Inc 10/11/2020 [id number] / / [id number] Procedures Procedure Name Priority Date/Time Associated Diagnosis Comments XR SCOLIOSIS 6 OR MORE VIEWS Schedule Routine, Read Routine (OP Routine) 02/27/2025 10:45 AM CDT Spinal stenosis, lumbar region, with neurogenic claudication SCREENING MAMMOGRAM W RUIZ Routine 01/22/2016 8:50 AM CDT from Last 3 Months or Most Recently Relevant to Health Maintenance Results * XR Scoliosis 6 or More Views (02/27/2025 10:45 AM CDT) Anatomical Region Laterality Modality Spine N/A Computed Radiogr aphy 02/27/2025 11:1 7 AM CDT Impressions 02/27/2025 11:17 AM CDT Unchanged combined T11 to pelvis posterior fusion with L4-S1 interbody fusion. Unchanged bilateral vertical gumaro fracture at L3-L4. Electronically signed by: Mk Blank D.O. Narrative 02/27/2025 11:17 AM CDT EXAMINATION: XR SCOLIOSIS 6 OR MORE VIEWS HISTORY: s/p lumbar fusion COMPARISON: Radiographs 01/10/2024 FINDINGS: No scoliosis. Neutral coronal balance, minimal anterior sagittal imbalance. No pelvic obliquity. T11 to pelvis posterior fusion with L4-S1 interbody fusion. Unchanged bilateral vertical gumaro fracture at L3-L4. No evidence of hardware loosening. No angular excursion of the fused segments. Normal vertebral body heights. Moderate T9-T10 degenerative disc changes, mild degenerative disc changes throughout the remainder of the unfused cervicothoracic spine. Procedure Note Mk Blank, DO - 02/27/2025 EXAMINATION: XR SCOLIOSIS 6 OR MORE VIEWS HISTORY: s/p lumbar fusion COMPARISON: Radiographs 01/10/2024 FINDINGS: No scoliosis. Neutral coronal balance, minimal anterior sagittal imbalance. No pelvic obliquity. T11 to pelvis posterior fusion with L4-S1 interbody fusion. Unchanged bilateral vertical gumaro fracture at L3-L4. No evidence of hardware loosening. No angular excursion of the fused segments. Normal vertebral body heights. Moderate T9-T10 degenerative disc changes, mild degenerative disc changes throughout the remainder of the unfused cervicothoracic spine. IMPRESSION: Unchanged combined T11 to pelvis posterior fusion with L4-S1 interbody fusion. Unchanged bilateral vertical gumaro fracture at L3-L4. Electronically signed by: Mk Blank D.O. Adebayo QUINTEROS IMG XR PROCEDURES Yoon l Result * Screening Mammogram W Ruiz (01/22/2016 8:50 AM CDT) Anatomical Region Laterality Modality Breast N/A Mammography 01/22/2016 8:50 AM CDT Narrative 01/25/2016 10:39 AM CDT MAIK CHANDRA M.D. FINAL REPORT ACC# Date Time Exam [id number] January 22, 2016 08:50:00 [facility] [id number] Bilateral screen w ruiz Technologist(s): Zoey Magana; ; EXAMINATION: Mammogram Technique: Bilateral Full-Field Digital Screening Mammogram and Digital Breast Tomosynthesis were performed. Views obtained: bilateral craniocaudal and bilateral mediolateral oblique. Computer Aided Detection of the 2D images was performed with [facility] 1.3 version 9.3. Mammogram Findings: The present examination has been compared to a prior imaging study performed at [facility] on 10/12/2012. The breasts are heterogeneously dense, which may obscure small masses. There is no suspicious abnormality in either breast. IMPRESSION: Annual screening mammography is recommended. OVERALL FINAL ASSESSMENT: BI-RADS CATEGORY 1: Negative. Requested By: Dictated By: MAIK CHANDRA M.D. on Jan 25 2016 10:38A This document has been electronically signed by: MAIK CHANDRA M.D. on Jan 25 2016 10:38A [id number] Procedure Note Provider, MD Newton - 01/04/2017 MAIK CHANDRA M.D. FINAL REPORT ACC# Date Time Exam [id number] January 22, 2016 08:50:00 [facility] [id number] Bilateral screen w ruiz Technologist(s): Zoey Magana; ; EXAMINATION: Mammogram Technique: Bilateral Full-Field Digital Screening Mammogram and Digital Breast Tomosynthesis were performed. Views obtained: bilateral craniocaudaland bilateral mediolateral oblique. Computer Aided Detection of the 2Dimages was performed with [facility] 1.3 version 9.3. Mammogram Findings: The present examination has been compared to a prior imaging study performed at [facility] on 10/12/2012. The breasts are heterogeneously dense, which may obscure small masses. There is no suspicious abnormality in either breast. IMPRESSION: Annual screening mammography is recommended. OVERALL FINAL ASSESSMENT: BI-RADS CATEGORY 1: Negative. Requested By: Dictated By: MAIK CHANDRA M.D. on Jan 25 2016 10:38A This document has been electronically signed by: MAIK CHANDRA M.D. on Jan 25 2016 10:38A [id number] us Historical Provider MD HAWKINS MAMMO PROCEDURES Yoon l Result from Last 3 Months or Most Recently Relevant to Health Maintenance Insurance UHC MEDICARE ADVANTAGE MEDICARE COMMERCIAL GENERIC [facility] MDCR HMO REF [facility] MEDICARE Address: [address] [address] [place] [address] [facility] MEDICARE ADVANTAGE [facility] MEDICARE Address: [address] [address] [place] [address] Advance Directives For more information, please contact: [phone] * Full Code (Latest Code Status on File) Date Activated Date Inactivated Comments 07/01/2019 4:53 PM 07/05/2019 6:15 PM Care Teams Watch Adjuster Relationship Specialty Start Date End Date Leelee Ayala MD [address] [place] [address] PCP - General Internal Medicine 07/07/21
--- OUTSIDE RECORDS SUMMARY | 2025-03-17 07:28 | XMS_ITS | Clinical Summary ---
Author Organization [facility] Address [address] [place] [address] Care Team Providers Care Restaurant Hourly Team Member Name Role Phone Unavailable Primary Care Provider Unavailabl e Social History Tobacco Use Types Packs/Day Years Used Date Smoking Tobacco: Never Assessed Comments Unknown Sex and Gender Information Value Date Recorded Sex Assigned at Not on file Legal Sex Female 5:40 PM CDT Gender Identity Not on file Sexual Orientation Not on file Plan of Treatment Health Maintenance Due Date Last Done Comments Cervical Cancer Screening Pa p Smear (Age 30 to 64) Every 3 Years 1964 Colorectal Cancer Screening Colonoscopy (10 Years) 1964 Annual Physical 1967 Hepatitis C 1982 DTaP, Tdap and Td Vaccines ( 1 - Tdap) 1983 Cervical Cancer Screening Pa p with HPV Testing (Age 30 to 64) Every 5 Years 1994 Cervical Cancer Screening with HPV 1994 Mammogram Screening 2004 Pneumococcal Vaccine: 50+ Ye ars (1 of 1 - PCV) 2014 Zoster Vaccines (1 of 2) 2014 COVID-19 Vaccine (2023-2 5 season) 2024 RSV Immunization or 60+ Years (1 - 1-dose 75+ series) 2039 Meningococcal B Vaccine Aged Out No l onger eligible based on patient's age to complete this topic Meningococcal Vaccine Aged Out No gypsy evelyn eligible based on patient's age to complete this topic RSV Immunizations Under 20 Months Aged Out No longer eligible based on patient's age to complete this topic
--- OUTSIDE RECORDS SUMMARY | 2025-03-17 07:28 | XMS_ITS | Clinical Summary ---
Author Organization [facility] Address [address] [place] [address] Care Team Providers Care Web Coordinator Name Role Phone Leelee Ayala MD Primary Care Provider [phone] Allergies Active Allergy Reactions Criticality Noted Date [...] 11:59 PM CDT Hospital Encounter [facility] Radiology [address] [place] [address] Spinal stenosis, lumbar region, with neurogenic claudication Discharge Disposition: Discharge to home or self care 02/27/2025 10:30 AM CDT Office Visit [facility] Neurosurgery [address] [place] [address] Adebayo Jenkins PA Spinal stenosis, lumbar region, with neurogenic claudication (Primary Dx) 02/21/2025 Orders Only [facility] Neurosurgery [address] [place] [address] Adebayo Jenkins PA Lumbar pain (Primary Dx) 02/19/2025 Telephone [facility] Scheduling [address] [place] [address] Avril Rg from Last 3 Months Immunizations Immunization Administration Dates Next Due Influenza, Quadrivalent, Spl it, Preservative Free, Intramuscular 07/02/2019 Surgical History Surgery Date Site/Laterality Comments SPINAL FUSION fusion at L5-S1 in 2003 and subsequently at L4-L5 in 2007 HERNIA REPAIR COLONOSCOPY SECTION ULNAR NERVE TRANSPOSITION [...] on file 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 Gender Identity Female 07/07/2021 9:17 AM CDT [...] 02/27/2025 10:50 AM CDT Plan of Treatment Health Maintenance [...] this topic Medical Devices Implanted Type Area Diet Clerk Device Identifier Shelf Expiration Date Model / Serial / Lot L4-5 Fusion- 4 Implanted:2003 (Quantity not on file) Lumbar-Sa cral Spine [employer] Inc [id number] - [id number] - [id number] Implanted:Qty: 1 on 07/01/2019 by Danish Hammonds MD at [facility] N/A: Spine Lumbar [employer] Inc 06/03/2024 [id number] / [id number] / Medtronic Sofamor Danek [id number] Cd Horizon 5.5mm 500mm Line Straight Gumaro Spinal Titanium - [id number] Implanted:Qty: 1 on 07/01/2019 by Danish Hammonds MD at [facility] N/A: Spine Lumbar Medtronic Inc 07/01/2019 [id number] / / Medtronic Sofamor Danek [id number] Solera Cd Horizon 6.5mm 45mm Multiaxial Spine Screw Bone Cocr - [id number] Implanted:Qty: 12 on 07/01/2019 by Danish Hammonds MD at [facility] N/A: Spine Lumbar Medtronic Inc 07/01/2019 [id number] / / Medtronic Sofamor Danek [id number] Solera Cd Horizon 6.5mm 50mm Multiaxial Spine Screw Bone Cocr - [id number] Implanted:Qty: 4 on 07/01/2019 by Danish Hammonds MD at [facility] N/A: Spine Lumbar Medtronic Inc 07/01/2019 [id number] / / Medtronic Inc [id number] 8.5mm 90mm Multiaxial Cannulated Thoracolumbar Screw Bone - [id number] Implanted:Qty: 1 on 07/01/2019 by Danish Hammonds MD at [facility] N/A: Spine Lumbar Medtronic Inc 07/01/2019 [id number] / / Medtronic Sofamor Danek [id number] Cd Horizon Break Off Spinal Screw Set Titanium Nonsterile 5.5 Mm - [id number] Implanted:Qty: 18 on 07/01/2019 by Danish Hammonds MD at [facility] N/A: Spine Lumbar Medtronic Inc 07/01/2019 [id number] / / Medtronic Inc [id number] 8.5mm 80mm Multiaxial Cannulated Thoracolumbar Screw Bone - [id number] Implanted:Qty: 1 on 07/01/2019 by Danish Hammonds MD at [facility] N/A: Spine Lumbar Medtronic Inc 07/01/2019 [id number] / / Medtronic Sofamor Danek [id number] Infuse 18mm 26mm Absorbable Sponge Sterile Water Syringe Needle - [id number] Implanted:Qty: 1 on 07/01/2019 by Danish Hammonds MD at [facility] N/A: Spine Lumbar Medtronic Inc 2020 [id number] / / [id number] Medtronic Sofamor Danek [id number] Infuse 18mm 26mm Absorbable Sponge Sterile Water Syringe Needle - [id number] Implanted:Qty: 1 on 07/01/2019 by Danish Hammonds MD at [facility] N/A: Spine Lumbar Medtronic Inc 04/10/2020 [id number] / / [id number] Medtronic Sofamor Danek [id number] Mastergraft Block Void Filler Substitute 20ml Bone Graft Matrix - [id number] Implanted:Qty: 1 on 07/01/2019 by Danish Hammonds MD at [facility] N/A: Spine Lumbar Medtronic Inc 10/11/2020 [id number] / / [id number] Procedures Procedure Name Priority Date/Time Associated Diagnosis [...] the unfused cervicothoracic spine. Procedure Note Mk Blank DO - 02/27/2025 EXAMINATION: XR SCOLIOSIS 6 [...] M.D. FINAL REPORT ACC# Date Time Exam [id number] January 22, 2016 08:50:00 [facility] [id number] Bilateral screen w ruiz Technologist(s): Zoey Magana; ; EXAMINATION: Mammogram Technique: Bilateral Full-Field Digital Screening Mammogram and Digital Breast Tomosynthesis were performed. Views obtained: bilateral craniocaudal and bilateral mediolateral oblique. Computer Aided Detection of the 2D images was performed with [facility] version 9.3. Mammogram Findings: The present examination has been compared to a prior imaging study performed at [facility] on 10/12/2012. The breasts are heterogeneously dense, which may obscure small masses. There is no suspicious abnormality in either breast. IMPRESSION: Annual screening mammography is recommended. OVERALL FINAL ASSESSMENT: BI-RADS CATEGORY 1: Negative. Requested By: Dictated By: MAIK CHANDRA M.D. on Jan 25 2016 10:38A This document has been electronically signed by: MAIK CHANDRA M.D. on Jan 25 2016 10:38A [id number] Procedure Note Provider, MD Newton - 01/04/2017 MAIK CHANDRA M.D. FINAL REPORT ACC# Date Time Exam [id number] January 22, 2016 08:50:00 [facility] [id number] Bilateral screen w ruiz Technologist(s): Zoey Magana; ; EXAMINATION: Mammogram Technique: Bilateral Full-Field Digital Screening Mammogram and Digital Breast Tomosynthesis were performed. Views obtained: bilateral craniocaudaland bilateral mediolateral oblique. Computer Aided Detection of the 2Dimages was performed with [employer] version 9.3. Mammogram Findings: The present examination has been compared to a prior imaging study performed at [facility] on 10/12/2012. The breasts are heterogeneously dense, which may obscure small masses. There is no suspicious abnormality in either breast. IMPRESSION: Annual screening mammography is recommended. OVERALL FINAL ASSESSMENT: BI-RADS CATEGORY 1: Negative. Requested By: Dictated By: MAIK CHANDRA M.D. on Jan 25 2016 10:38A This document has been electronically signed by: MAIK CAHNDRA M.D. on Jan 25 2016 10:38A [id number] Historical Provider MD HAWKINS MAMMO PROCEDURES Yoon l Result from Last 3 Months or Most Recently Relevant to Health Maintenance Insurance UHC MEDICARE ADVANTAGE MEDICARE COMMERCIAL GENERIC [place] [id number] [facility] MDCR HMO REF [facility] MEDICARE ADVANTAGE Advance Directives For more information, please contact: [phone] * Full Code (Latest Code Status on File) Date Activated Date Inactivated Comments 07/01/2019 4:53 PM 07/05/2019 6:15 PM Care Teams Web Coordinator Relationship Specialty Start Date End Date Leelee Ayala MD [address] [place], [place] [id number] PCP - General Internal Medicine 07/07/21
== END 2025-03-17 07:25 | disposition home or self-care (01) ==
LOC: CHSIMG 07:26
PROVIDERS: PCP Internal Medicine; Visit Provider Internal Medicine
DX: Z12.2 Encounter for screening for malignant neoplasm of respiratory organs (principal); Z13.6 Encounter for screening for cardiovascular disorders; I65.23 Occlusion and stenosis of bilateral carotid arteries; Z87.891 Personal history of nicotine dependence
CPT/HCPCS: 71271; 76775; 93880